=== PATIENT | female | born 1975 | race Caucasian/White ===

== ENCOUNTER 2016-06-06 02:57 | Inpatient (IN) | payer OTHER ==
[2016-06-06 03:23] LABS: BASOPHIL 0.2 % (0-2); EOSINOPHIL 0.3 % (0-5); HGB 11.9 g/dl (12.5-16.0); LYMPHOCYTE 10.8 % (15-48); MCH 26.9 pg (25.0-31.0); MCHC 33.1 g/dL (32.0-36.0); MCV 81.3 fL (78.0-100.0); MONOCYTE 5.2 % (0-12); MPV 10.8 fL (6.0-9.5); NEUTROPHIL 83.5 % (41-80); PLT 351 K/uL (150-400); RBC 4.43 M/uL (4.20-5.40); RDW 14.9 % (11.5-14.0); WBC 11.1 K/uL (4.0-10.5)
[2016-06-06 03:46] LABS: ALBUMIN 4.2 g/dL (3.5-5.0); BILIRUBIN - TOTAL 0.3 mg/dL (0.1-1.0); CREATININE 0.8 mg/dL (0.5-1.0); POTASSIUM 3.8 mmol/L (3.5-5.1); TOTAL PROTEIN 7.2 g/dL (6.4-8.3)
[2016-06-07 05:18] LABS: BASOPHIL 0.2 % (0-2); EOSINOPHIL 1.1 % (0-5); HCT 31.2 % (37.0-47.0); HGB 10.1 g/dl (12.5-16.0); LYMPHOCYTE 30.7 % (15-48); MCH 26.8 pg (25.0-31.0); MCHC 32.4 g/dL (32.0-36.0); MCV 82.8 fL (78.0-100.0); MONOCYTE 6.2 % (0-12); MPV 10.3 fL (6.0-9.5); NEUTROPHIL 61.8 % (41-80); PLT 300 K/uL (150-400); RBC 3.77 M/uL (4.20-5.40); RDW 14.8 % (11.5-14.0); WBC 6.5 K/uL (4.0-10.5)
[2016-06-07 05:38] LABS: ALBUMIN 3.6 g/dL (3.5-5.0)
[2016-06-07 06:03] LABS: BILIRUBIN - TOTAL 0.3 mg/dL (0.1-1.0); CREATININE 0.8 mg/dL (0.5-1.0); GLOBULIN (CALCULATION) 2.2 g/dL (2.2-4.2); TOTAL PROTEIN 5.8 g/dL (6.4-8.3)
== END 2016-06-07 16:38 | disposition home or self-care (01) | DRG 390 ==
LOC: FER 02:57 → FMS 07:29
PROVIDERS: Emergency Medicine; ADMIT Internal Medicine
DX: K56.60 Unspecified intestinal obstruction (principal); K80.20 Calculus of gallbladder without cholecystitis without obstruction
CPT/HCPCS: 36415; 74020; 80053; 82150; 83690; 85025; J2175; Q9967